=== PATIENT | male | born 1970 | race Caucasian/White ===

== ENCOUNTER 2019-03-29 16:12 | Emergency (ER) | payer OTHER ==
[~2019-03-29] VITALS: Ht 175.3 cm; Wt 92.0 kg
[2019-03-29 16:24] VITALS: BP 163/89
[2019-03-29] MEDS ORDERED: DIAZEPAM 5 MG TABLET PO ONE (19:00)
[2019-03-29] MEDS ORDERED: KETOROLAC 60MG/2ML VIAL IM ONE (19:00)
== END 2019-03-29 20:32 | disposition home or self-care (01) ==
LOC: ER 17:25
DX: M54.5 Low back pain (principal); M54.2 Cervicalgia; M54.6 Pain in thoracic spine; V49.19XA Passenger injured in collision with other motor vehicles in nontraffic accident, initial encounter; Y93.89 Activity, other specified; Y92.89 Other specified places as the place of occurrence of the external cause; Y99.8 Other external cause status
CPT/HCPCS: 72070; 72100; 72125; 96372; 99284; J1885